=== PATIENT | male | born 1965 | race Caucasian/White ===

== ENCOUNTER 2025-05-03 10:34 | Inpatient (IN) | payer OTHER ==
[2025-05-03] MEDS: Lactated Ringers 1,000 ML IV ONE (11:00)
[2025-05-03 11:02] LABS: BASOPHILS ABSOLUTE AUTO 0.0 x10^3/uL (0.0-0.2); BASOPHILS PERCENT AUTO 0.0 % (0.2-1.2); EOSINOPHILS ABSOLUTE AUTO 0.0 x10^3/uL (0.0-0.5); EOSINOPHILS PERCENT AUTO 0.0 % (0.0-4.0); IMMATURE GRAN ABSOLUTE AUTO 0.02 x10^3/uL (0.00-0.07); IMMATURE GRAN PERCENT AUTO 0.20 % (0.00-0.43); LYMPHOCYTES ABSOLUTE AUTO 1.1 x10^3/uL (1.0-4.8); LYMPHOCYTES PERCENT AUTO 10.3 % (25.0-50.0); MONOCYTES ABSOLUTE AUTO 0.5 x10^3/uL (0.0-0.8); MONOCYTES PERCENT AUTO 4.8 % (2.0-11.0); NEUTROPHILS ABSOLUTE AUTO 8.9 x10^3/uL (1.8-7.7); NEUTROPHILS PERCENT AUTO 84.7 % (50.0-80.0); PLATELET COUNT,PLT 288 x10^3/uL (130-400); RED BLOOD CELL COUNT 5.09 x10^6/uL (4.5-6.0); WHITE BLOOD CELL COUNT,WBC 10.5 x10^3/uL (4.0-10.0)
[2025-05-03 11:17] LABS: BLOOD UREA NITROGEN,BUN 44.0 mg/dL (7-18); CREATININE 1.6 mg/dL (0.70-1.30)
[2025-05-03 11:18] LABS: A/G RATIO 0.63; ALANINE AMINOTRANSFERASE,ALT 37.0 U/L (16-63); ASPARTATE AMNIOTRANSFERASE,AST 15.0 U/L (15-37); BILIRUBIN TOTAL 0.9 mg/dL (0.2-1.0); PROTEIN TOTAL,TP 9.1 g/dL (6.4-8.2)
[2025-05-03] MEDS: Ondansetron 4 MG/2 ML SDV IVPUSH ONE (11:18)
[2025-05-03 11:21] LABS: APPEARANCE,URINE CLEAR (CLEAR); GLUCOSE,URINE 500 mg/dL (NEGATIVE); OCCULT BLOOD,URINE TRACE-INTACT (NEGATIVE)
[2025-05-03] MEDS ORDERED: 50% Dextrose in Water 50 ML Syringe IVPUSH PRN ×3 (11:28→17:26)
[2025-05-03 11:45] LABS: SQUAMOUS EPITHELIAL CELLS,UR NOT SEEN /HPF (NOT SEEN)
[2025-05-03] MEDS: Insulin Regular, Human 100 Units/ML 10 ML Vial IV ONE (11:45)
[2025-05-03 11:49] LABS: HCO3 VENOUS,POC 19 mmol/L (22-29); O2 SATURATION VENOUS,POC 68 %; PCO2 VENOUS,POC 38 mmHg (41-51); PH VENOUS,POC 7.32 pH (7.32-7.43); PO2 VENOUS,POC 39 mmHg
[2025-05-03 11:55] LABS: EST CRCL DRUG DOSING (CG) 61.78 mL/min; ESTIMATED GFR 50.0 mL/min (>=60); GLUCOSE RANDOM 884.0 mg/dL (70-99)
[2025-05-03 11:58] LABS: SODIUM,NA 131.0 mmol/L (136-145)
[2025-05-03 11:59] LABS: CARBON DIOXIDE,CO2 22.0 mmol/L (21-32); CHLORIDE,CL 97.0 mmol/L (98-107); POTASSIUM,K 6.0 mmol/L (3.5-5.1)
[2025-05-03] MEDS: Iopamidol 612 MG/ML 100 ML Bottle IVPUSH ONE (12:44)
[2025-05-03 15:13] LABS: BLOOD UREA NITROGEN,BUN 34.0 mg/dL (7-18); CARBON DIOXIDE,CO2 23.0 mmol/L (21-32); CHLORIDE,CL 101.0 mmol/L (98-107); CREATININE 1.0 mg/dL (0.70-1.30); EST CRCL DRUG DOSING (CG) 98.86 mL/min; GLUCOSE RANDOM 372.0 mg/dL (70-99); POTASSIUM,K 4.3 mmol/L (3.5-5.1); SODIUM,NA 135.0 mmol/L (136-145)
[2025-05-03 15:14] LABS: ESTIMATED GFR 87.0 mL/min (>=60)
[2025-05-03] MEDS ORDERED: Ondansetron 4 MG Tab.DIS PO PRN (17:31)
[2025-05-03 19:09] LABS: BLOOD UREA NITROGEN,BUN 29.0 mg/dL (7-18); CARBON DIOXIDE,CO2 23.0 mmol/L (21-32); CHLORIDE,CL 99.0 mmol/L (98-107); CREATININE 1.0 mg/dL (0.70-1.30); EST CRCL DRUG DOSING (CG) 98.86 mL/min; GLUCOSE RANDOM 374.0 mg/dL (70-99); POTASSIUM,K 3.9 mmol/L (3.5-5.1); SODIUM,NA 134.0 mmol/L (136-145)
[2025-05-03 19:11] LABS: ESTIMATED GFR 87.0 mL/min (>=60)
[2025-05-03 23:16] LABS: BLOOD UREA NITROGEN,BUN 22.0 mg/dL (7-18); CARBON DIOXIDE,CO2 24.0 mmol/L (21-32); CHLORIDE,CL 102.0 mmol/L (98-107); CREATININE 0.9 mg/dL (0.70-1.30); EST CRCL DRUG DOSING (CG) 109.84 mL/min; GLUCOSE RANDOM 292.0 mg/dL (70-99); POTASSIUM,K 3.7 mmol/L (3.5-5.1); SODIUM,NA 135.0 mmol/L (136-145)
[2025-05-03 23:17] LABS: ESTIMATED GFR 99.0 mL/min (>=60)
[2025-05-04 06:52] LABS: BLOOD UREA NITROGEN,BUN 19.0 mg/dL (7-18); CARBON DIOXIDE,CO2 24.0 mmol/L (21-32); CHLORIDE,CL 105.0 mmol/L (98-107); CREATININE 0.7 mg/dL (0.70-1.30); EST CRCL DRUG DOSING (CG) 141.22 mL/min; GLUCOSE RANDOM 245.0 mg/dL (70-99); POTASSIUM,K 3.7 mmol/L (3.5-5.1); SODIUM,NA 137.0 mmol/L (136-145)
[2025-05-04 06:53] LABS: ESTIMATED GFR 107.0 mL/min (>=60)
[2025-05-04] MEDS ORDERED: Insulin Regular, Human 100 Units/ML 10 ML Vial SUBCUT SCH (07:00)
[2025-05-04] MEDS: Insulin Regular, Human 100 Units/ML 10 ML Vial SUBCUT SCH (08:28)
[2025-05-05] MEDS: Glycerin 5.4 GM/7.5 ML Suppository RECTAL ONE ×2 (11:12→20:21)
== END 2025-05-08 15:45 | disposition home or self-care (01) | DRG 638 ==
LOC: VM.ED 10:34 → VM.MS 14:47 → OBSVTOIN 05-04 11:19
PROVIDERS: ADMIT Family Medicine; ATTEND Family Medicine
DX: E09.10 Drug or chemical induced diabetes mellitus with ketoacidosis without coma (principal); N17.9 Acute kidney failure, unspecified; R35.0 Frequency of micturition; E86.0 Dehydration; E87.5 Hyperkalemia; M47.9 Spondylosis, unspecified; Z79.899 Other long term (current) drug therapy; Z79.84 Long term (current) use of oral hypoglycemic drugs; Z79.1 Long term (current) use of non-steroidal anti-inflammatories (NSAID); Z98.890 Other specified postprocedural states
CPT/HCPCS: 36415; 74177; 80048; 80053; 81001; 82803; 82947; 83036; 83605; 83690; 83735; 85025; 86140; 96361; 96374; 99223-GT; 99232-GT; 99233-GT; 99239-GT; 99284; 99285-25; A9270-GY; G0378; J1815-GY; J2405; J7030; J7120; Q9967